=== PATIENT | male | born 1955 | race Caucasian/White ===

== ENCOUNTER → 2018-03-16 | Outpatient (REF) | payer BC, OTHER ==
[2018-03-16 14:46] LABS: HEPATITIS C VIRUS ABY INDEX 0.2 INDEX (<0.8)
[2018-03-16 19:35] LABS: BACTERIA, URINE AUTO NEGATIVE (NEGATIVE); MUCUS, URINE SMALL (NEGATIVE); RBC, URINE AUTO 18 /HPF (0-3); SQUAMOUS EPITHELIAL CELL UR AU 0 /HPF (0-6); WBC, URINE AUTO 0 /HPF (0-3)
== END ==
LOC: M LAB REF 13:26
DX: Z01.89 Encounter for other specified special examinations (principal); R31.9 Hematuria, unspecified
CPT/HCPCS: 86803

== ENCOUNTER 2018-06-24 06:41 | Day surgery (SDC) | payer BC, OTHER ==
[2018-06-24] MEDS: NS 1,000 ML IV (07:00)
[2018-06-24] MEDS ORDERED: PROPOFOL 200 MG/20 ML VIAL As Ordered (07:09)
[2018-06-24] MEDS ORDERED: LIDOCAINE 2% INJ 100 MG/5 ML SDV (FOR ANES.) As Ordered (07:09)
== END 2018-06-24 08:48 | disposition home or self-care (01) ==
LOC: M OPP 06:41
DX: Z12.11 Encounter for screening for malignant neoplasm of colon (principal); K64.0 First degree hemorrhoids; Z98.0 Intestinal bypass and anastomosis status
CPT/HCPCS: 45378

== ENCOUNTER → 2024-06-04 | Outpatient (CLI) | payer MEDICARE, BC | LOC: M WHC 08:49 | PROVIDERS: ATTEND Orthopaedic Surgery | DX: M71.22 Synovial cyst of popliteal space [Baker], left knee (principal); M25.562 Pain in left knee; M79.605 Pain in left leg ==

== ENCOUNTER → 2024-06-04 | Outpatient (CLI) | payer MEDICARE, BC ==
[2024-06-04 13:33] LABS: BASO % 0.4 % (0.0-1.0); EOS # 0.1 10^3/uL (0.0-0.5); EOS % 1.6 % (0.0-3.0); HEMATOCRIT 40.1 % (42.0-52.0); HEMOGLOBIN 13.4 g/dl (13.5-17.5); LYMPH # 1.4 10^3/uL (1.5-5.0); MEAN CORPUSCULAR HEMOGLOBIN 31.2 pg (27.0-33.0); MEAN CORPUSCULAR HGB CONC 33.4 g/dl (32.0-36.5); MEAN CORPUSCULAR VOLUME 93.3 fl (80.0-96.0); MONO # 0.4 10^3/uL (0.0-0.8); MONO % 6.1 % (2.0-8.0); NEUTROPHILS % 71.3 % (36.0-66.0); PLATELET COUNT, AUTOMATED 302 10^3/uL (150-450); WHITE BLOOD COUNT 7.1 10^3/uL (4.0-10.0)
[2024-06-04 13:40] LABS: ERYTHROCYTE SEDIMENTATION RATE 39 mm/hr (0-20)
[2024-06-04 13:42] LABS: RHEUMATOID FACTOR QUANT < 3.5 IU/ML (<14); URIC ACID 3.9 MG/DL (3.7-9.2)
== END ==
LOC: M PLALAB 08:53
PROVIDERS: ATTEND Orthopaedic Surgery
DX: M25.562 Pain in left knee (principal)